=== PATIENT | female | born 1970 | race Caucasian/White ===

== ENCOUNTER 2017-01-18 05:40 | Emergency (ER) | payer OTHER ==
[2017-01-18 06:48] LABS: BASOPHIL 0.4 % (0-2); HCT 41.5 % (37.0-47.0); HGB 14.2 g/dl (12.5-16.0); LYMPHOCYTE 19.2 % (15-48); MCH 29.6 pg (25.0-31.0); MCHC 34.2 g/dL (32.0-36.0); MCV 86.5 fL (78.0-100.0); MONOCYTE 7.8 % (0-12); MPV 10.1 fL (6.0-9.5); NEUTROPHIL 69.6 % (41-80); PLT 290 K/uL (150-400); RDW 13.2 % (11.5-14.0); WBC 8.1 K/uL (4.0-10.5)
[2017-01-18 07:01] LABS: INR 0.98 (0.9-1.2); PROTHROMBIN TIME 12.6 SECONDS (11.7-14.0); PTT 24.1 SECONDS (23.2-31.4)
[2017-01-18 07:05] LABS: ALBUMIN 4.5 g/dL (3.5-5.0); BILIRUBIN - TOTAL 0.2 mg/dL (0.1-1.0); CREATININE 0.7 mg/dL (0.5-1.0); GLOBULIN (CALCULATION) 2.2 g/dL (2.2-4.2); POTASSIUM 4.5 mmol/L (3.5-5.1); TOTAL PROTEIN 6.7 g/dL (6.4-8.3)
[2017-01-18 07:06] LABS: CKMB 2.04 ng/mL (0.97-4.94); MYOGLOBIN 30 ng/mL (26-65); TROPONIN T < 0.010 ng/mL
== END 2017-01-18 07:38 | disposition other institution (70) ==
LOC: FER 05:40
PROVIDERS: Emergency Medicine Emergency Medical Services
DX: I60.9 Nontraumatic subarachnoid hemorrhage, unspecified (principal); R20.2 Paresthesia of skin; R53.1 Weakness; I10 Essential (primary) hypertension; M21.372 Foot drop, left foot; M21.371 Foot drop, right foot; G70.00 Myasthenia gravis without (acute) exacerbation; Z88.8 Allergy status to other drugs, medicaments and biological substances; Z79.899 Other long term (current) drug therapy
CPT/HCPCS: 36415; 70450; 71010; 80053; 80061; 82550; 82553; 83874; 84484; 85025; 85610; 85730; 93005; J2270; J2405